=== PATIENT | female | born 1990 | race American Indian/Alaskan Native ===

== ENCOUNTER 2020-06-12 21:37 | Emergency (ER) | payer OTHER ==
[2020-06-12 23:14] VITALS: BP 122/35
--- NOTE | 2020-06-12 23:18 | Emergency Department Report ---
ED Female HPI - General Stated complaint: 6WKS ; ABDOMINAL PAIN Time Seen by Provider: 06/12/20 23:13 - History of Present Illness Initial comments: 29-year-old 6 weeks -[place] female presents emerged department complaining of suprapubic pain that radiates across her lower abdomen. Ports no vaginal discharge, no vaginal bleeding, no pelvic trauma. Reports no chest pain, no palpitation no fever, chills, sweats, no shortness of breath. Reports no similar complications with any previous pregnancies. MD Complaint: pelvic pain -: Gradual Location: suprapubic Radiation: non-radiating Severity: mild, moderate Quality: dull Consistency: constant Improves with: none Are you Now?: Yes Associated Symptoms: abdominal pain. denies: nausea/vomiting, loss of appetite, dysuria, hematuria, rash, seizure, shortness of breath, syncope - Related Data Allergies Allergy/AdvReac Type Severity Reaction Status Date / Time No Known Allergies Allergy Unverified 06/12/20 23:18 ED Review of Systems ROS: Stated complaint: 6WKS ; ABDOMINAL PAIN Other details as noted in HPI Comment: All other systems reviewed and negative ED Physical Exam - General General appearance: alert, in no apparent distress - Head Head exam: Present: atraumatic, normocephalic - Eye Eye exam: Present: normal appearance, PERRL, EOMI Pupils: Present: normal accommodation - ENT ENT exam: Present: mucous membranes moist - Neck Neck exam: Present: normal inspection - Respiratory Respiratory exam: Present: normal lung sounds bilaterally. Absent: respiratory distress - Cardiovascular Cardiovascular Exam: Present: regular rate, normal rhythm. Absent: systolic murmur, diastolic murmur, rubs, gallop - GI/Abdominal GI/Abdominal exam: Present: soft, normal bowel sounds - Extremities Exam Extremities exam: Present: normal inspection - Back Exam Back exam: Present: normal inspection - Neurological Exam Neurological exam: Present: alert, oriented X3 - Psychiatric Psychiatric exam: Present: normal affect, normal mood - Skin Skin exam: Present: warm, dry, intact, normal color. Absent: rash ED Course Vital Signs 06/12/20 23:08 Temperature 98.3 F Pulse Rate 80 Respiratory 16 Rate Blood Pressure 122/35 O2 Sat by Pulse 100 Oximetry ED Medical Decision Making - Lab Data Result diagrams: 06/13/20 00:39 - Radiology Data Radiology results: report reviewed [address] [place] [address] Ultrasound Report Signed Patient: ERICA DAMIAN MR#: [id number] : 1990 Acct:[id number] Age/Sex: 29 / F ADM Date: 06/12/20 Loc: ED Attending Dr: Ordering Physician: ROBERTO BUTLER Date of Service: 06/12/20 Procedure(s): US OB transvaginal Accession Number(s): [id number] cc: ROBERTO BUTLER US OB transvaginal INDICATION / CLINICAL INFORMATION: pelvic pain and . COMPARISON: None available. FINDINGS: Intrauterine gestational sac is seen with yolk sac. No pole is identif ied. Mean sac diameter is 1.81 cm, 6 weeks 5 days. Left ovary is unremarkable. The right ovary is not visualized. There is scant free fluid in the cul-de-sac. IMPRESSION: 1. Intrauterine gestational sac measures 6 weeks, 5 days. Yolk sac is visualized; however, no pole is identified. Correlation with serial beta hCG levels and short-term sonographic follow-up is recommended. Signer Name: Guzman Lopez MD Signed: 06/13/2020 12:56 AM Workstation Name: [id number] Transcribed By: TRINY Dictated By: Guzman Lopez MD Electronically Authenticated By: Guzman Lopez MD Signed Date/Time: 06/13/2055 DD/ TD/TT: Critical care attestation.: If time is entered above; I have spent that time in minutes in the direct care of this critically ill patient, excluding procedure time. ED Disposition Clinical Impression: Discomfort during Disposition: DC-01 TO HOME OR SELFCARE Is pt being admited?: No Condition: Stable Instructions: Warning Signs During Referrals: [facility] [Provider Group] - 3-5 Days [facility], [Primary Care Provider] - 3-5 Days
[2020-06-12 23:58] LABS: Mucus,Urine FEW /HPF
[2020-06-13 00:26] LABS: Bilirubin,Urine NEG (Negative); Blood,Urine NEG (Negative); Color,Urine Yellow (Yellow); Protein,Urine <15 mg/dL mg/dL (Negative); Urobilinogen,Urine < 2.0 mg/dL (<2.0)
--- NOTE | 2020-06-13 01:00 | Ultrasound Report ---
US OB transvaginal INDICATION / CLINICAL INFORMATION: pelvic pain and . COMPARISON: None available. FINDINGS: Intrauterine gestational sac is seen with yolk sac. No pole is identified. Mean sac diameter is 1.81 cm, 6 weeks 5 days. Left ovary is unremarkable. The right ovary is not visualized. There is scant free fluid in the cul-de-sac. IMPRESSION: 1. Intrauterine gestational sac measures 6 weeks, 5 days. Yolk sac is visualized; however, no p ole is identified. Correlation with serial beta hCG levels and short-term sonographic follow-up is re commended. Signer Name: Guzman Lopez MD Signed: 06/13/2020 12:56 AM Workstation Name: [id number]
[2020-06-13 01:14] LABS: Basophils # (Auto) 0.1 K/mm3 (0.0-0.1); Basophils % (Auto) 0.6 % (0.0-1.8); Eosinophils # (Auto) 0.1 K/mm3 (0.0-0.4); Hematocrit 35.1 % (30.3-42.9); Hemoglobin 11.8 gm/dl (10.1-14.3); Lymphocytes # (Auto) 3.1 K/mm3 (1.2-5.4); Lymphocytes % (Auto) 31.1 % (13.4-35.0); Mean Corpuscular HGB Conc 34 % (30-34); Mean Corpuscular Volume 82 fl (79-97); Monocytes # (Auto) 0.6 K/mm3 (0.0-0.8); Monocytes % (Auto) 6.4 % (0.0-7.3); Platelet Count 317 K/mm3 (140-440); Red Blood Count 4.31 M/mm3 (3.65-5.03)
== END 2020-06-13 03:10 | disposition home or self-care (01) ==
LOC: ED 21:37
DX: O26.891 Other specified pregnancy related conditions, first trimester (principal); R10.2 Pelvic and perineal pain; Z3A.01 Less than 8 weeks gestation of pregnancy
CPT/HCPCS: 36415; 76801; 76817; 81001; 84702; 85025; 86850; 86900; 86901